=== PATIENT | male | born 1995 | race Caucasian/White ===

== ENCOUNTER 2020-12-23 22:18 | Emergency (ER) | payer OTHER ==
[~2020-12-23] VITALS: Ht 182.9 cm; Wt 94.2 kg
[2020-12-23 23:00] LABS: HEMATOCRIT 47.9 % (42.0-52.0); MEAN CORPUSCULAR HEMOGLOBIN 29.7 pg (27.0-33.0); MEAN CORPUSCULAR HGB CONC 33.4 g/dl (32.0-36.5); PLATELET COUNT, AUTOMATED 207 10^3/uL (150-450); RED BLOOD COUNT 5.38 10^6/uL (4.30-6.10); WHITE BLOOD COUNT 8.9 10^3/uL (4.0-10.0)
[2020-12-23 23:29] LABS: AMPHETAMINES LEVEL URINE NEGATIVE (NEGATIVE); BARBITURATES URINE NEGATIVE (NEGATIVE); BENZODIAZEPINES URINE NEGATIVE (NEGATIVE); CANNABINOIDS URINE NEGATIVE (NEGATIVE); COCAINE METABOLITE URINE NEGATIVE (NEGATIVE); METHADONE URINE NEGATIVE (NEGATIVE); OPIATES URINE NEGATIVE (NEGATIVE); PHENCYCLIDINE URINE NEGATIVE (NEGATIVE)
[2020-12-23 23:40] LABS: ACETAMINOPHEN LEVEL < 2.0 UG/ML (10.0-30.0); ALBUMIN 4.4 GM/DL (3.2-5.2); ALT/SGPT 31 U/L (12-78); BILIRUBIN,DIRECT < 0.1 MG/DL (0.0-0.2); BILIRUBIN,TOTAL 0.5 MG/DL (0.2-1.0); BLOOD UREA NITROGEN 10 MG/DL (7-18); CALCIUM LEVEL 8.7 MG/DL (8.5-10.1); CARBON DIOXIDE LEVEL 20 MEQ/L (21-32); CHLORIDE LEVEL 105 MEQ/L (98-107); CREATININE FOR GFR 1.03 MG/DL (0.70-1.30); ETHYL ALCOHOL (ETHANOL) 0.147 % (0.000-0.010); GLOMERULAR FILTRATION RATE > 60.0 (>60); GLUCOSE, FASTING 97 MG/DL (70-100); POTASSIUM SERUM 3.9 MEQ/L (3.5-5.1); SALICYLATE LEVEL < 1.7 MG/DL (5.0-30.0); SODIUM LEVEL 138 MEQ/L (136-145); TOTAL PROTEIN 7.6 GM/DL (6.4-8.2)
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
[2020-12-24] MEDS ORDERED: MORPHINE 4 MG/ML 1ML VIAL/SYRINGE (J2270) IV ONE ×3 (00:10→02:55)
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
[2020-12-24 03:21] LABS: RSV AMPLIFICATION NEGATIVE (NEGATIVE)
[2020-12-24 04:53] VITALS: BP 143/65
== END 2020-12-24 04:57 | disposition short-term general hospital (02) ==
LOC: M ED 22:18
DX: R45.851 Suicidal ideations (principal); S63.054A Dislocation of other carpometacarpal joint of right hand, initial encounter; S62.141A Displaced fracture of body of hamate [unciform] bone, right wrist, initial encounter for closed fracture; S62.131A Displaced fracture of capitate [os magnum] bone, right wrist, initial encounter for closed fracture; W22.8XXA Striking against or struck by other objects, initial encounter; Y92.9 Unspecified place or not applicable; Y93.89 Activity, other specified; Y99.9 Unspecified external cause status; Z63.0 Problems in relationship with spouse or partner; F10.10 Alcohol abuse, uncomplicated
CPT/HCPCS: 73130; 73200; 80048; 80076; 80143; 80307; 82077; 84443; 85027; 87631; 96374; 96376; 99285; J2270

== ENCOUNTER 2024-01-25 09:16 | Emergency (ER) | payer OTHER ==
[~2024-01-25] VITALS: Ht 182.9 cm; Wt 90.9 kg
[2024-01-25] MEDS ORDERED: ACET-683 PO (09:24)
[2024-01-25] MEDS ORDERED: THERTAB52 PO (10:57)
[2024-01-25] MEDS ORDERED: HOME MED LIST COMPLETE! XX SCH (11:00)
[2024-01-25] MEDS: diazePAM 5MG TABLET PO ONE (11:24)
[2024-01-25] MEDS: KETOROLAC 30 MG/ML 1ML VIAL IM ONE (11:24)
[2024-01-25 11:57] VITALS: BP 120/66; TEMP 97.1; O2SAT 100
[2024-01-25] MEDS ORDERED: METH-1164 PO (12:39)
[2024-01-25] MEDS ORDERED: MEDR4PAK PO (12:39)
[2024-01-25] MEDS ORDERED: NAPR-885 PO (12:39)
== END 2024-01-25 17:21 | disposition home or self-care (01) ==
LOC: M ED 09:16
DX: M54.31 Sciatica, right side (principal); Z79.1 Long term (current) use of non-steroidal anti-inflammatories (NSAID); Z79.810 Long term (current) use of selective estrogen receptor modulators (SERMs); Z79.899 Other long term (current) drug therapy
CPT/HCPCS: 96372; 99281; J1100; J1885